=== PATIENT | male | born 1970 | race Caucasian/White ===

== ENCOUNTER 2019-04-14 22:35 | Emergency (ER) | payer OTHER ==
[~2019-04-14] VITALS: Ht 193 cm; Wt 102.1 kg
[2019-04-14 22:56] LABS: ABSOLUTE BASOPHILS 0.1 thou/uL (0.0-0.2); ABSOLUTE EOSINOPHILS 0.3 thou/uL (0.0-0.7); ABSOLUTE MONOCYTES 0.8 thou/uL (0.0-1.2); ABSOLUTE NEUTROPHILS 5.2 thou/uL (1.6-8.1); BASOPHILS 1.3 %; EOSINOPHILS 3.2 %; HEMATOCRIT 46.4 % (42.0-52.0); HEMOGLOBIN 16.1 gm/dL (14.0-18.0); LYMPHOCYTES 31.8 %; MCH 33.2 pg (26.0-34.0); MCHC 34.8 g/dL (28.0-37.0); MCV 95.6 fL (80.0-100.0); MONOCYTES 8.7 %; MPV 8.1 fl. (7.2-11.1); NUCLEATED RBCS 0 /100WBC; PLATELET COUNT* 252 thou/uL (150-400); RBC 4.85 mil/uL (4.50-6.00); RDW-CV 13.3 % (10.5-14.5); WBC 9.5 thou/uL (4.0-11.0)
[2019-04-14 23:12] LABS: APTT 28.7 Seconds (25.0-31.3); PROTIME 10.2 Seconds (9.20-11.50)
[2019-04-14 23:22] LABS: CALCIUM 8.2 mg/dL (8.5-10.1); CREATININE 1.1 mg/dL (0.6-1.3); POTASSIUM 3.7 mmol/L (3.5-5.1)
[2019-04-14 23:37] LABS: ALBUMIN 3.5 g/dL (3.4-5.0); CK-MB MASS 1.4 ng/mL (<0.5-3.6); MAGNESIUM 2.1 mg/dL (1.8-2.4); TOTAL BILIRUBIN 0.3 mg/dL (<0.1-1.0)
[2019-04-14 23:59] VITALS: BP 129/84
--- NOTE | 2019-04-16 10:52 | EKG ---
[place] [address] ELECTROCARDIOGRAM REPORT Name: CHRIS CASON [id number] Admission: 04/14/19 Attend Phys: Discharge: 04/15/19 Date of : 72 Report #: [id number] THIS REPORT FOR: //name// [facility] ED Test Date: 2019-04-14 Test Time: 22:36:15 Pat Name: CHRIS CASON Department: Room: Gender: M Director Of Accounts Payable: : 1970 Requested By: Jese Clarke Order Number: [id number] MD: Ismael Schaeffer Measurements Intervals [place] Rate: 88 P: 67 KS: 145 QRS: 58 QRSD: 110 T: 49 QT: 365 QTc: 442 Interpretive Statements Sinus rhythm Possible left atrial enlargement RSR' in V1 or V2, right VCD or RVH Compared to ECG 11/25/2014 09:44:25 RSR' in V1 or V2 now present Sinus tachycardia no longer present Ventricular premature complex(es) no longer present Electronically Signed On 04-16-2019 10:51:59 PLANOGRAPH OPERATOR by Ismael Schaeffer [email or web address] <ELECTRONICALLY SIGNED> By: Ismael Schaeffer MD, FACC 04/16/19 [id number] Ismael Schaeffer MD, FAC /EPI
== END 2019-04-15 | disposition home or self-care (01) ==
LOC: M.ERS 22:35
PROVIDERS: Family Medicine
DX: R07.89 Other chest pain (principal); R42 Dizziness and giddiness; F17.210 Nicotine dependence, cigarettes, uncomplicated; Z90.49 Acquired absence of other specified parts of digestive tract